=== PATIENT | male | born 1950 | race Hispanic/Latino ===

== ENCOUNTER → 2017-12-21 | Outpatient (CLI) | payer OTHER | END | disposition home or self-care (01) | LOC: RAH 11:05 | PROVIDERS: ATTEND Internal Medicine | DX: M47.896 Other spondylosis, lumbar region (principal) | CPT/HCPCS: 72100 ==

== ENCOUNTER → 2018-05-02 | Outpatient (CLI) | payer OTHER | END | disposition home or self-care (01) | LOC: RAH 07:55 | PROVIDERS: ATTEND Internal Medicine | DX: M19.031 Primary osteoarthritis, right wrist (principal); Z87.891 Personal history of nicotine dependence | CPT/HCPCS: 76775 ==

== ENCOUNTER → 2019-08-26 | Outpatient (CLI) | payer OTHER | END | disposition home or self-care (01) | LOC: RAH 10:28 | PROVIDERS: ATTEND Internal Medicine | DX: M19.011 Primary osteoarthritis, right shoulder (principal); M19.022 Primary osteoarthritis, left elbow | CPT/HCPCS: 73030; 73060; 73070 ==

== ENCOUNTER → 2020-02-20 | Outpatient (CLI) | payer OTHER ==
[~2020-02-20] MED LIST: CLIN300C3 PO; GABA600T10 PO; HYDR-4457 PO; IBUP-2077 PO; KRIL500C PO; METF-444 PO; SIMV40TA59 PO; TRAM50TA4 PO
== END | disposition home or self-care (01) ==
LOC: RAH 11:45
PROVIDERS: ATTEND Internal Medicine
DX: Z01.818 Encounter for other preprocedural examination (principal)
CPT/HCPCS: 71046

== ENCOUNTER 2020-03-11 06:13 | Day surgery (SDC) | payer OTHER ==
[2020-03-05 14:38] LABS: BASOPHILS % (AUTO) 0.9 % (0.0-5.0); EOSINOPHILS % (AUTO) 10.1 % (0.0-8.0); HEMATOCRIT 38.3 % (42-54); LYMPHOCYTES % (AUTO) 27.9 % (21.0-51.0); MEAN CORPUSCULAR HEMOGLOBIN 30.8 pg (27.0-33.0); MEAN CORPUSCULAR HGB CONC 32.1 g/dL (32.0-36.0); MEAN CORPUSCULAR VOLUME 95.8 fL (79-99); MONOCYTES % (AUTO) 7.4 % (3.0-13.0); NEUTROPHILS % (AUTO) 53.4 % (40.0-77.0); PLATELET COUNT (AUTO) 164 K/uL (130-400); RED CELL DISTRIBUTION WIDTH 12.7 % (11.0-15.5); WHITE BLOOD COUNT (AUTO) 7.1 K/uL (4.8-10.8)
[2020-03-05 14:45] LABS: CREATININE 0.9 mg/dL (0.5-1.5)
[2020-03-10 10:56] VITALS: BP 135/67
--- NOTE | 2020-03-10 13:14 | NUR ---
RE: ABNORMAL LABS INFORMED DR ENCARNACION REGARDING ABNORMAL LABS HGB 12.3, HCT 38.3, BUN 24, CREAT 0.9. NO NEW ORDERS, MAY PROCEED WITH SURGERY .
[2020-03-11] VITALS (19 sets, daily range): BP systolic 107–122; BP diastolic 58–73
[~2020-03-11] VITALS: Ht 165.1 cm; Wt 82.3 kg
[~2020-03-11 06:13] MED LIST changes: -CLIN300C3 PO; -HYDR-4457 PO
[2020-03-11] MEDS: CLINDAMYCIN 900 MG/D5% WATER 50 ML IV SCH ×2 (08:00→10:45)
[2020-03-11] MEDS ORDERED: SODIUM CHLORIDE 0.9% 1000ML 1,000 ML IV ONE (08:08)
--- NOTE | 2020-03-11 08:34 | NUR ---
POTENTIAL FOR INFECTION: CLIPPED LEFT SHOULDER AND LEFT ARM PER ELIE ROSS, FOLLOWED BY WIPING WITH ZITA: 2% CHLORHEXIDINE GLUCONATE CLOTH PATIENTS PRE-OP SKIN PREP.
[2020-03-11] MEDS ORDERED: EPINEPHRINE 1 MG/ML 30ML VIAL IJ ONE (10:02)
[2020-03-11] MEDS ORDERED: LIDOCAINE PF 2% 5ML ABBOJECT ONE (10:12)
[2020-03-11] MEDS ORDERED: DEXAMETHASONE SOD PHOSPHATE 10MG/ML 1ML VIAL ONE (10:12)
[2020-03-11] MEDS ORDERED: PROPOFOL 10 MG/ML 20ML VIAL IV ONE (10:12)
[2020-03-11] MEDS ORDERED: MIDAZOLAM HCL 1 MG/ML 2ML VIAL ONE (10:13)
[2020-03-11] MEDS ORDERED: ROCURONIUM 10MG/1ML SYR 10 MG/ML ML ONE (10:13)
[2020-03-11] MEDS ORDERED: FENTANYL CITRATE PF 50 MCG/1 ML 2ML VIAL ONE (10:13)
[2020-03-11] MEDS ORDERED: ONDANSETRON HCL 4 MG/2 ML VIAL ONE (10:13)
[2020-03-11] MEDS ORDERED: EPHEDRINE SULFATE 50 MG/ML AMPULE ONE (10:27)
[2020-03-11] MEDS ORDERED: NEOSTIGMINE 5MG/5ML SYR IV ONE (12:03)
[2020-03-11] MEDS ORDERED: GLYCOPYRROLATE 1 MG/5 ML SYRINGE ONE (12:03)
[2020-03-11] MEDS ORDERED: CLIN300C3 PO (12:20)
[2020-03-11] MEDS ORDERED: HYDR-4457 PO (12:20)
--- NOTE | 2020-03-11 13:25 | NUR ---
ASSESSMENT RECEIVED PT FROM PACU STAFF CRISTINA RN. PT DOING WELL. LEFT SHOULDER IN SLING. DRSG DRY AND INTACT. ICE PACK GIVEN TO PT.
--- NOTE | 2020-03-11 14:00 | NUR ---
PRESCRIPTION ANTIBIOTIC CLEGURINDER CALLED IN TO [facility] ON [address]. SPOKE TO PHARMACIST ESTUARDO. INSTRUCTED PTS DAUGHTER TO EVENT OPERATIONS MANAGER ANTIBIOTIC AND PAIN PILL. VERBALIZED UNDERSTANDING.
--- NOTE | 2020-03-11 14:19 | NUR ---
D/C PT DISCHARGED HOME. LEFT ARM IN SLING. DRSG DRY AND INTACT. WRITTEN INSTRUCTIONS GIVEN TO PTS DAUGHTER. BOTH PT AND DAUGHTER VERBALIZED UNDERSTANDING.
== END 2020-03-11 14:19 | disposition home or self-care (01) ==
LOC: DAH 06:13
PROVIDERS: ATTEND Orthopaedic Surgery
DX: S46.012A Strain of muscle(s) and tendon(s) of the rotator cuff of left shoulder, initial encounter (principal); E11.9 Type 2 diabetes mellitus without complications; E78.00 Pure hypercholesterolemia, unspecified; Z90.49 Acquired absence of other specified parts of digestive tract; Z98.890 Other specified postprocedural states; Z79.84 Long term (current) use of oral hypoglycemic drugs; Z79.899 Other long term (current) drug therapy; G89.29 Other chronic pain; X58.XXXA Exposure to other specified factors, initial encounter; Y93.89 Activity, other specified; Y92.89 Other specified places as the place of occurrence of the external cause; Y99.8 Other external cause status; M19.012 Primary osteoarthritis, left shoulder
CPT/HCPCS: 29824; 29826; 29827; 36415; 64415; 80048; 82948 ×2; 85025; A4215; A4221; A4222; A4223; A4565; A4649 ×4; A4663; A4930 ×2; A5120; A6204; C1713 ×2; G0168; J0171; J1100; J2001; J2250; J2405; J2704; J2710; J3010; J3490 ×3; J7030 ×2; 87635

== ENCOUNTER → 2021-11-04 | Outpatient (CLI) | payer OTHER ==
[~2021-11-04] MED LIST changes: +CLIN300C3 PO; +HYDR-4457 PO; -TRAM50TA4 PO
== END | disposition home or self-care (01) ==
LOC: RAH 10:52
PROVIDERS: ATTEND Internal Medicine
DX: M17.12 Unilateral primary osteoarthritis, left knee (principal)
CPT/HCPCS: 73560